=== PATIENT | male | born 1960 | race African-American/Black ===

== ENCOUNTER 2017-02-08 14:52 | Emergency (ER) | payer OTHER ==
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
[2017-02-08] MEDS ORDERED: IBUPROFEN 800 MG TABLET PO ONE (16:50)
[2017-02-08 17:06] VITALS: BP 145/87
== END 2017-02-08 17:06 | disposition home or self-care (01) ==
LOC: ER 14:52
DX: S20.212A Contusion of left front wall of thorax, initial encounter (principal); V89.2XXA Person injured in unspecified motor-vehicle accident, traffic, initial encounter
CPT/HCPCS: 99284